=== PATIENT | male | born 1995 | race Two or more races ===

== ENCOUNTER 2023-02-03 14:32 | Emergency (ER) | payer SELFPAY ==
[2023-02-03 14:37] VITALS: BP 134/66; PULSE 83; RESP 16; TEMP 98.5; BMI 27.3
[2023-02-03] MEDS ORDERED: KETOROLAC TROMETHAMINE 30 MG/1 ML VIAL IM ONE (15:13)
[2023-02-03] MEDS ORDERED: KETOROLAC TROMETHAMINE 30 MG/1 ML VIAL ONE (15:17)
[2023-02-03 15:48] LABS: BASO % 0.3 % (0-2.0); EOS % 3.4 % (0-4.5); HEMOGLOBIN 14.6 GM/dL (11.7-16.9); INR 1.03 (0.83-1.09); MCH 28.6 pg (25.7-33.7); MCHC 33.9 g/dl (32.0-35.9); MEAN CELL VOLUME 84.3 fl (80-96); MEAN PLT VOLUME 9.1 fl (7.5-11.1); MONO % 7.8 % (3.8-10.2); NEUT % 64.5 % (42.8-82.8); PLATELET COUNT 279 10^3/uL (134-434); RDW 13.3 % (11.9-15.9); WHITE BLOOD COUNT 5.9 K/mm3 (4.0-10.0)
[2023-02-03 15:51] LABS: ACTIVATED PTT 30.7 SECONDS (25.2-36.5)
[2023-02-03 15:59] LABS: ALBUMIN 4.1 g/dl (3.4-5.0); CALCIUM 9.1 mg/dL (8.5-10.1)
[2023-02-03 16:03] LABS: CREATININE 1.3 mg/dL (0.55-1.3)
[2023-02-03 16:04] LABS: BILIRUBIN,TOTAL 0.3 mg/dL (0.2-1); TOT PROT 7.3 g/dl (6.4-8.2)
== END 2023-02-03 16:27 | disposition home or self-care (01) ==
LOC: JER 14:32
PROC: 3E0233Z Introduction of Anti-inflammatory into Muscle, Percutaneous Approach (ICD-10-PCS; principal; 2023-02-03)
DX: R07.89 Other chest pain (principal)
CPT/HCPCS: 36415; 71046-TC-FY; 80053; 84484; 85025; 85379; 85610; 85730; 93005; 93010; 99285-25